=== PATIENT | female | born 1985 | race Caucasian/White ===

== ENCOUNTER 2019-08-12 00:20 | Inpatient (IN) | payer OTHER, SELFPAY ==
[2019-08-12] VITALS (17 sets, daily range): BP systolic 107–193; BP diastolic 54–125; PULSE 55–121; RESP 16–18; TEMP 36.7–37; O2SAT 98
--- NOTE | 2019-08-12 00:51 | LDADM ---
This patient, Krystal Giles, was admitted to Labor/Delivery/Recovery 103 on 08/12/19 at 00:20. Plans for labor, pain management and were discussed with patient. Patient/family oriented to hospital policies and general routines including ID bracelet, bed and alarms, visiting hours, pain management, procedures, bathroom and other care routines, personal items, smoking policy, room service/diet and guest tray routines, security routines, and visiting hours. Patient/Family are encouraged to report perceived risks to care and to ask questions if they do not understand what they are told or what they should do. See OBIX for further documentation.
[2019-08-12 01:15] LABS: Basophils Absolute Auto 0.1 K/mm3 (0.0-0.1); Basophils Percent Auto 0.6 % (0.2-1.2); Eosinophils Absolute Auto 0.1 K/mm3 (0-0.3); Eosinophils Percent Auto 0.5 % (0-4.4); Hematocrit 38.1 % (37.0-47.0); Hemoglobin 12.9 g/dL (12.0-15.0); Immature Granulocyte Absolute 0.14 K/mm3 (0.00-0.031); Lymphocytes Absolute Auto 2.88 K/mm3 (0.9-3.2); Lymphocytes Percent Auto 20.4 % (18.3-44.2); Mean Corpuscular HGB Conc 33.9 g/dl (32-36); Mean Corpuscular Hemoglobin 30.9 pg (26-34); Mean Corpuscular Volume 91.4 fl (80-100); Mean Platelet Volume 10.7 fl (7.4-10.4); Monocytes Absolute Auto 1.2 K/mm3 (0.1-0.6); Monocytes Percent Auto 8.7 % (2.6-8.5); Neutrophils Absolute Auto 9.8 K/mm3 (1.3-6.7); Neutrophils Percent Auto 68.8 % (45.5-73.1); Platelet Count Result 379 k/mm3 (150-375); Red Blood Count 4.17 M/mm3 (4.2-5.4); Red Cell Distribution Width 14.3 % (11.5-14.5); White Blood Count 14.2 K/mm3 (4.5-10.0)
[2019-08-12] MEDS: LACTATED RINGERS 1,000 ML 125 ML IV CONT (01:16)
[2019-08-12] MEDS: AMPICILLIN 2 GM/NS 100 ML 2 GM/100 ML BAG IVPB (01:16)
--- NOTE | 2019-08-12 01:16 | WPDOBADMIT ---
Obstetrics - Admit Note Admission Note: 33y/o @ 37w4d here in active labor. Cervix 8cm with bbow per nursing staff. Anticipate record reviewed. No pertinent additions to the history and/or any subsequent changes in the physical findings that are not consistent with the expected course of the were found. Additions to the history and/or subsequent changes in the physical findings follow. None.
--- NOTE | 2019-08-12 01:44 | PM.OBPRVD ---
OB - Delivery Note Procedure Delivery date: 08/12/19 events: Meconium Stained Fluid Delivery augmentation: rupture of membranes Delivery monitor: external FHT and external uterine Route of delivery: Episiotomy description: None Laceration description: None Specimen: Yes Estimated blood loss (mL): 104 Narrative: Mother and baby in stable condition. Cord clamped at 3 minutes. Gasses collected: arterial .75cc & venous 1.5cc Baby Date of : 08/12/19 Time of : 01:30 Weeks of gestation at delivery: 37 Infant gender: Female Weight (pounds): 7 Weight (ounces): 14 presentation: vertex position: Left Occiput Anterior Placenta delivery description: Spontaneous cord vessel description: 3 Vessels score one minute: 9 score five minutes: 9
[2019-08-12] MEDS: IBUPROFEN 600 MG TABLET PO (04:02)
[2019-08-12] MEDS: BENZOCAINE 20% AER SPR (*SP) 56 GM CAN 1 SPRAY TOPICAL (04:03)
[2019-08-12] MEDS: WITCH HAZEL 40 PADS 1 PAD TOPICAL (04:03)
[2019-08-12 04:15] LABS: Amphetamine Screen Urine Negative (Negative); Barbiturate Screen Urine Negative (Negative); Benzodiazepines Screen Urine Negative (Negative); Cannabinoid Screen Urine Negative (Negative); Cocaine Screen Urine Negative (Negative); Methadone Screen Urine Negative (Negative); Opiate Screen Urine Negative (Negative); Phencyclidine Screen Urine Negative (Negative)
--- NOTE | 2019-08-12 04:24 | OBPPTRN ---
Patient transferred to post room #283 via wheelchair. Support person present. Oriented to unit, room, information board, rooming in, admission packet and security measures. Patient verbalizes understanding.
[2019-08-12] MEDS: ACETAMINOPHEN 325 MG TABLET 650 MG PO (05:18)
--- NOTE | 2019-08-12 07:44 | P.PNOB_ITS ---
OB - PN: Subj Subjective Date/time seen: 08/12/19 07:44 Patient comments: no complaints, pain well controlled and other (Lochia similar to menses) [place] baby status: doing well OB - PN: Obj Data Labs CBC & Chem 7: 08/12/19 01:10 Labs: Laboratory Results - last 24 hr 08/12/19 08/12/19 08/12/19 01:10 01:10 03:50 WBC 14.2 H RBC 4.17 L Hgb 12.9 Hct 38.1 MCV 91.4 MCH 30.9 MCHC 33.9 RDW 14.3 Plt Count 379 H MPV 10.7 H Immature Gran % (Auto) 1.0 H Neut % (Auto) 68.8 Lymph % (Auto) 20.4 [place] % (Auto) 8.7 H Eos % (Auto) 0.5 Baso % (Auto) 0.6 Lymph # (Auto) 2.88 [place] # (Auto) 1.2 H Eos # (Auto) 0.1 Baso # (Auto) 0.1 Abs Immat Gran (auto) 0.14 H Absolute Neuts (auto) 9.8 H Absolute Nucleated RBC 0.0 Nucleated RBC % 0.0 Urine Opiates Screen Negative Urine Methadone Screen Negative Ur Barbiturates Screen Negative Ur Phencyclidine Scrn Negative Ur Amphetamine Screen Negative U Benzodiazepines Scrn Negative Urine Cocaine Screen Negative U Cannabinoids Screen Negative Blood Type O Positive Antibody Screen Negative OB - PN A/P Plan day: 0 (s/p vaginal delivery, doing well) Plan: routine care Time Spent With Patient Time: Total time spent is greater than 50% in coordination of care (as documented) at patient's floor/unit and/or counseling patient: Time with patient: less than 15 minutes Exam Const: General: no acute distress GI: Inspection: other (Fundus firm and nontender at umbilicus) GI Palp: Yes Soft to palpation and No Tenderness to palpation present (GI) Extrem: General: no edema
[2019-08-12] MEDS: MULTIVIT/MIN/PREN/FOL AC/IRON TABLET 1 TAB PO (08:29)
[2019-08-12] MEDS: DOCUSATE SODIUM 100 MG CAPSULE PO (08:29)
[2019-08-12 10:29] LABS: Rapid Plasma Reagin Non-Reactive (NonReactive)
--- NOTE | 2019-08-12 15:00 | PC.NURSE ---
Breast pump provided due to in Level II status. Instructions given on breast pump care and usage, pumping schedule, nipple care, and collection and storage of breast milk. Encouraged [id number], breast massage and manual expression to stimulate supply. Assessed patient for correct flange size, placement and draw. Patient verbalizes and demonstrates understanding of instructions.
[2019-08-13] MEDS: ACETAMINOPHEN 325 MG TABLET 650 MG PO ×2 (02:56→09:47)
[2019-08-13 05:52] LABS: Hematocrit 31.6 % (37.0-47.0); Hemoglobin 10.3 g/dL (12.0-15.0)
--- NOTE | 2019-08-13 07:30 | PC.NURSE ---
PT introductions made and plan of care discussed per post , pain management, breast pumping,infant at [facility], daily care activities and pending discharge to home. PT verbalized understanding of such care.
[2019-08-13 07:45] VITALS: BP 120/84; PULSE 89; RESP 16; TEMP 36.6; O2SAT 99
--- NOTE | 2019-08-13 07:51 | PM.OBPNVD ---
OB - PN: Subj Subjective Date/time seen: 08/13/19 07:51 Patient comments: no complaints baby status: doing well OB - PN: Obj Data Labs CBC & Chem 7: 08/13/19 05:07 Labs: Laboratory Results - last 24 hr 08/12/19 08/13/19 01:10 05:07 Hgb 10.3 L Hct 31.6 L RPR Non-reactive OB - PN A/P Plan day: 1 Plan: discharge home Time Spent With Patient Time: Total time spent is greater than 50% in coordination of care (as documented) at patient's floor/unit and/or counseling patient: Review of Systems Review of Systems: All systems reviewed & are unremarkable except as noted in HPI and below Constitutional: Constitutional: Reports as per HPI Cardiovascular: Cardiovascular: Reports as per HPI Exam Const: General: comfortable Resp: Effort & Inspection: normal respiratory effort Psych: Appearance: grossly normal Affect: normal affect Attitude: cooperative Judgement: Good judgement present (Psych)
--- NOTE | 2019-08-13 07:52 | PM.OBDSVD ---
OB - DS: Summary OB Procedures : None OB Procedures Intrapartum: Spontaneous Vag Delivery OB Procedures: : None Time Spent with Patient Time attestation: Total time spent providing and/or coordinating discharge services: Exam Const: General: comfortable Resp: Effort & Inspection: normal respiratory effort Psych: Appearance: grossly normal Affect: normal affect Attitude: cooperative Thought content: Yes Normal thought content present Judgement: Good judgement present (Psych) DS: Data Data Completed and Pending Pending studies at discharge: Pending at discharge 08/12/19 01:40 Surgical [PTH] Routine Labs on day of discharge: Labs from last 24 hours 08/13/19 08/12/19 05:07 01:10 Hgb 10.3 L Hct 31.6 L RPR Non-reactive Discharge Plan Discharge Attending physician on discharge: Liz Villagran Discharging Clinician: Jennifer Barron Patient Disposition: Home, Self-Care Activity: pelvic rest Diet: regular Patient Instructions: How to Stop Smoking (DC), Antibiotic Form Stand Alone Forms: General Discharge Information Follow-up/Referrals: Lory Valdez CNM [Certified Nurse Casket Coverer] - 4 Weeks Discharge Medications: New ibuprofen 600 mg Tablet 600 mg PO Q6H PRN (Reason: Cramping) Qty: 30 RF: 0 Continued citalopram 10 mg Tablet 10 mg PO DAILY RF: 0 PNV [id number] [] 28 mg iron- 800 mcg Tablet 1 tablet PO DAILY RF: 0 Date of admission: 08/12/19 00:20 Primary Care Provider: UNKNOWN,DOCTOR Admitting Provider: Liz Villagran Attending physician on admission: Liz Villagran
--- NOTE | 2019-08-13 09:00 | PC.NURSE ---
Patient viewed the discharge video Mother & Baby Care, The First Two Weeks . Patient was given the opportunity and encouraged to ask questions. Patient verbalized understanding of information shared and has been given the mother/baby guide for home reference.
[2019-08-13 09:40] VITALS: BP 128/84; PULSE 72; RESP 16; TEMP 36.6; O2SAT 100
[2019-08-13] MEDS: DOCUSATE SODIUM 100 MG CAPSULE PO (09:46)
[2019-08-13] MEDS: MULTIVIT/MIN/PREN/FOL AC/IRON TABLET 1 TAB PO (09:46)
[2019-08-13] MEDS: IBUPROFEN 600 MG TABLET PO (09:48)
[2019-08-13 09:59] VITALS: PULSE 72; RESP 16; O2SAT 100
--- NOTE | 2019-08-13 09:59 | PC.NURSE ---
pt received discharge instructions per protocol and verbalized understanding of such instructions.
[2019-08-13] MEDS: CITALOPRAM HYDROBROMIDE 10 MG TABLET PO ×2 (10:12→10:14)
--- NOTE | 2019-08-13 10:20 | PC.NURSE ---
PT discharged to home ambulatory accompanied by significant other and taken to waiting car. Follow up appts confirmed
[2019-08-14 08:56] VITALS: BP 137/88; PULSE 85; RESP 18; TEMP 36.7
== END 2019-08-13 10:20 | disposition home or self-care (01) | DRG 807 ==
LOC: ANHLDR 01:56 → ANHOB2 04:56
PROVIDERS: Advanced Practice Midwife; Admitting Provider Obstetrics & Gynecology; Visit Provider Obstetrics & Gynecology
DX: O99.824 Streptococcus B carrier state complicating childbirth (principal); Z37.0 Single live birth; O77.0 Labor and delivery complicated by meconium in amniotic fluid; Z23 Encounter for immunization; Z3A.37 37 weeks gestation of pregnancy
CPT/HCPCS: 36415; 80307; 85014; 85018; 85025; 86592; 86850; 86900; 86901; 88307; A9270; J0290; J7120

== ENCOUNTER 2020-06-29 14:02 | Outpatient (CLI) | payer OTHER, SELFPAY ==
[2020-06-29 15:22] LABS: Beta HCG Quantitative < 2.39 mIU/ML
== END 2020-06-29 14:03 | disposition home or self-care (01) ==
LOC: ANHLAB 14:04
PROVIDERS: Visit Provider Advanced Practice Midwife
DX: N91.2 Amenorrhea, unspecified (principal)
CPT/HCPCS: 36415; 84702